=== PATIENT | male | born 1990 | race Caucasian/White ===

== ENCOUNTER 2018-09-06 15:09 | Emergency (ER) | payer BC, OTHER ==
[2018-09-06] MEDS ORDERED: Ibuprofen TAB* 600 MG PO ONE (16:50)
[2018-09-06 17:03] VITALS: BP 137/80
--- NOTE | 2018-09-13 06:42 | ED ---
Lower Extremity - HPI Summary HPI Summary: Patient is a 20-year-old male presented to the ED with right ankle pain after rolling the ankle yesterday. He has been ambulating, but with pain. He denies any swelling. Denies any ecchymosis. Denies any numbness or tingling. Denies any injury to the knee or foot otherwise. - History of Current Complaint Chief Complaint: EDExtremityLower Stated Complaint: RT ANKLE INJURY Time Seen by Provider: 09/06/18 15:40 Hx Obtained From: Patient Mechanism Of Injury: Twisted Onset of Pain: Hours Onset/Duration: Hours Severity Initially: Moderate Severity Currently: Moderate Pain Intensity: 3 Pain Scale Used: 0-10 Numeric Timing: Constant Location: Is Discrete @ - right ankle Associated Signs And Symptoms: Positive: Swelling. Negative: Redness, Bruising , Fever, Weakness Aggravating Factor(s): Standing, Ambulation Alleviating Factor(s): Rest - Risk Factors Gout Risk Factors: Negative DVT Risk Factors: Negative Septic Arthritis Risk Factor: Negative - Allergies/Home Medications Allergies/Adverse Reactions: Allergies Allergy/AdvReac Type Severity Reaction Status Date / Time No Known Allergies Allergy Verified 09/06/18 15:15 PMH/Surg Hx/FS Hx/Imm Hx Previously Healthy: Yes - Immunization History Hx Pertussis Vaccination: No Immunizations Up to Date: Yes Infectious Disease History: No Infectious Disease History: Denies: Traveled Outside the [place] in Last 30 Days - Social History Occupation: Employed Full-time Lives: With Family Alcohol Use: Weekly Hx Substance Use: Yes Substance Use Type: Reports: Marijuana Substance Use Comment - Amount & Last Used: recreational Hx Tobacco Use: Yes Smoking Status (MU): Light Every Day Tobacco Smoker Review of Systems Constitutional: Negative Negative: Fever, Chills, Fatigue, Skin Diaphoresis Negative: Palpitations, Chest Pain Negative: Shortness Of Breath, Cough Genitourinary: Negative Positive: no symptoms reported, see HPI Positive: Arthralgia, Myalgia Neurological: Negative All Other Systems Reviewed And Are Negative: Yes Physical Exam Triage Information Reviewed: Yes Vital Signs On Initial Exam: Initial Vitals Temp Pulse Resp BP Pulse Ox 98.4 F 72 16 128/78 100 09/06/18 15:13 09/06/18 15:13 09/06/18 15:13 09/06/18 15:13 09/06/18 15:13 Vital Signs Reviewed: Yes Appearance: Positive: Well-Appearing, Well-Nourished Skin: Positive: Warm, Skin Color Reflects Adequate Perfusion Head/Face: Positive: Normal Head/Face Inspection Eyes: Positive: EOMI, JOSE DE JESUS, Conjunctiva Clear Neck: Positive: Supple, No Lymphadenopathy Respiratory/Lung Sounds: Positive: Clear to Auscultation, Breath Sounds Present Cardiovascular: Positive: RRR, Pulses are Symmetrical in both Upper and Lower Extremities Musculoskeletal: Positive: Pain @ - right ankle - lateral portion Neurological: Positive: Alert, Oriented to Person Place, Time, Speech Normal Psychiatric: Positive: Affect/Mood Appropriate AVPU Assessment: Alert Diagnostics - Vital Signs Vital Signs Temp Pulse Resp BP Pulse Ox 09/06/18 17:02 98 F 69 18 137/80 96 09/06/18 15:13 98.4 F 72 16 128/78 100 - Laboratory Lab Statement: Any lab studies that have been ordered have been reviewed, and results considered in the medical decision making process. Lower Extremity Course/Dx - Course Course Of Treatment: Right ankle x-ray shows no AST is 77 FOR surgery there were no swelling is noted. Patient is able to dorsiflex and plantar flex, however with pain. There is no ecchymosis noted. Good pulses +2 bilaterally, both posterior tibial and pedal no acute fx. he is given a gel splint and crutches. He will follow up with [facility] if symptoms worsen. He is encouraged ibuprofen. He is given ibuprofen while medially. - Diagnoses Provider Diagnoses: Right ankle sprain Discharge - Sign-Out/Discharge Documenting (check all that apply): Patient Departure Patient Received Moderate/Deep Sedation with Procedure: No - Discharge Plan Condition: Stable Disposition: HOME Patient Education Materials: Ankle Sprain (ED) Forms: *Work Release Referrals: No Primary Care Phys,NOPCP [Primary Care Provider] - Additional Instructions: Ibuprofen 600mg three times daily for discomfort Elevate the extremity Ice to the area as much as possible Keep the gel splint applied Crutches as needed - Billing Disposition and Condition Condition: STABLE Disposition: Home
== END 2018-09-06 17:04 | disposition home or self-care (01) ==
LOC: ED 15:09
DX: S93.401A Sprain of unspecified ligament of right ankle, initial encounter (principal); X50.9XXA Other and unspecified overexertion or strenuous movements or postures, initial encounter; Y92.9 Unspecified place or not applicable; Z72.0 Tobacco use
CPT/HCPCS: 99282; A9270-GY

== ENCOUNTER → 2018-09-14 16:26 | Emergency (ER) | payer OTHER ==
--- NOTE | 2018-09-14 19:09 | ED ---
Lower Extremity - HPI Summary HPI Summary: Patient complains of right ankle pain status post basketball injury week ago. Patient states he went back to work as he was feeling better today and now has significant pain in right ankle. Denies any reinjury. Patient would like work note for couple days off from work. Denies any other pain injury or symptoms. - History of Current Complaint Chief Complaint: EDExtremityLower Stated Complaint: RIGHT ANKLE INJURY Time Seen by Provider: 09/14/18 18:36 Hx Obtained From: Patient Mechanism Of Injury: Unknown Onset of Pain: Days Severity Initially: Moderate Severity Currently: Moderate Pain Intensity: 5 Pain Scale Used: 0-10 Numeric Timing: Constant Location: Is Discrete @ Character Of Pain: Throbbing Associated Signs And Symptoms: Positive: Negative Aggravating Factor(s): Ambulation, Weight Bearing Alleviating Factor(s): Rest, Elevation Able to Bear Weight: Yes - Allergies/Home Medications Allergies/Adverse Reactions: Allergies Allergy/AdvReac Type Severity Reaction Status Date / Time No Known Allergies Allergy Verified 09/14/18 17:11 Home Medications: Home Medications NK [No Home Medications Reported] 09/14/18 [History Confirmed 09/14/18] PMH/Surg Hx/FS Hx/Imm Hx Endocrine/Hematology History: Denies: Hx Anticoagulant Therapy Cardiovascular History: Denies: Hx Cardiac Arrest History: Denies: Hx Dialysis Musculoskeletal History: Denies: Hx Gout Sensory History: Denies: Hx Legally Blind Neurological History: Denies: Hx Dementia Psychiatric History: Denies: Hx Autism Infectious Disease History: No Infectious Disease History: Denies: Traveled Outside the [place] in Last 30 Days - Social History Alcohol Use: Weekly Hx Substance Use: Yes Substance Use Type: Reports: Marijuana Substance Use Comment - Amount & Last Used: recreational Hx Tobacco Use: Yes Smoking Status (MU): Light Every Day Tobacco Smoker Review of Systems Constitutional: Negative Eyes: Negative ENT: Negative Cardiovascular: Negative Respiratory: Negative Gastrointestinal: Negative Genitourinary: Negative Positive: Arthralgia Skin: Negative Neurological: Negative Psychological: Normal All Other Systems Reviewed And Are Negative: Yes Physical Exam - Summary Physical Exam Summary: No swelling, erythema, ecchymosis, deformity noted to right ankle. Patient ambulatory. PMS intact distally. Triage Information Reviewed: Yes Vital Signs On Initial Exam: Initial Vitals Temp Pulse Resp BP Pulse Ox 98.1 F 62 17 160/95 99 09/14/18 17:08 09/14/18 17:08 09/14/18 17:08 09/14/18 17:08 09/14/18 17:08 Vital Signs Reviewed: Yes Appearance: Positive: Well-Appearing Skin: Positive: Warm Head/Face: Positive: Normal Head/Face Inspection Eyes: Positive: Normal Neck: Positive: Supple Respiratory/Lung Sounds: Positive: Clear to Auscultation Cardiovascular: Positive: Normal Abdomen Description: Positive: Nontender Musculoskeletal: Positive: Normal Neurological: Positive: Normal Psychiatric: Positive: Normal AVPU Assessment: Alert - [place] Coma Scale Best Eye Response: 4 - Spontaneous Best Motor Response: 6 - Obeys Commands Best Verbal Response: 5 - Oriented Coma Scale Total: 15 Diagnostics - Vital Signs Vital Signs Temp Pulse Resp BP Pulse Ox 09/14/18 17:08 98.1 F 62 17 160/95 99 - Laboratory Lab Statement: Any lab studies that have been ordered have been reviewed, and results considered in the medical decision making process. Lower Extremity Course/Dx - Course Course Of Treatment: Patient complains of right ankle pain status post [place] injury week ago. Patient states he went back to work as he was feeling better today and now has significant pain in right ankle. Denies any reinjury. Patient would like work note for couple days off from work. Denies any other pain injury or symptoms. Physical exam:No swelling, erythema, ecchymosis, deformity noted to right ankle. Patient ambulatory. PMS intact distally. Patient only received crutches and ankle gel splint on prior visit. Patient has not been using them. Patient just wants work note - Diagnoses Provider Diagnoses: Ankle pain Discharge - Sign-Out/Discharge Documenting (check all that apply): Patient Departure Patient Received Moderate/Deep Sedation with Procedure: No - Discharge Plan Condition: Stable Disposition: HOME Patient Education Materials: Ankle Sprain (ED) Forms: *Work Release Referrals: No Primary Care Phys,NOPCP [Primary Care Provider] - Judson Vasquez MD [Medical Doctor] - Additional Instructions: Ice, elevation, ibuprofen and rest for ankle pain. Follow-up with orthopedics Dr. Vasquez if pain persists. Return to the ED for any new or worsening symptoms. - Billing Disposition and Condition Condition: STABLE Disposition: Home
[2018-09-14 19:56] VITALS: BP 137/91
== END | disposition home or self-care (01) ==
LOC: ED 16:26
DX: M25.571 Pain in right ankle and joints of right foot (principal); F17.210 Nicotine dependence, cigarettes, uncomplicated
CPT/HCPCS: 99282

== ENCOUNTER 2018-12-20 18:27 | Emergency (ER) | payer OTHER ==
--- NOTE | 2018-12-20 20:44 | ED ---
Upper Extremity Pain - HPI Summary HPI Summary: Patient complains of right wrist pain 2 weeks. Denies initial traumatic event. States pain worse over last week. Patient states he has a job where he does a lot of repetitive hand motions. No improvement with ibuprofen and ice. Denies any other pain injury or symptoms. - History of Current Complaint Chief Complaint: EDExtremityUpper Stated Complaint: RIGHT WRIST INJURY PER PT Time Seen by Provider: 12/20/18 20:31 Hx Obtained From: Patient Mechanism Of Injury: Other Onset/Duration: Started Weeks Ago Timing: Constant Severity Initially: Moderate Severity Currently: Moderate Pain Location: Wrist Character: Aching, Throbbing Aggravating Factor(s): Movement Associated Signs & Symptoms: Positive: Negative - Allergies/Home Medications Allergies/Adverse Reactions: Allergies Allergy/AdvReac Type Severity Reaction Status Date / Time No Known Allergies Allergy Verified 12/20/18 18:35 PMH/Surg Hx/FS Hx/Imm Hx Endocrine/Hematology History: Denies: Hx Anticoagulant Therapy Cardiovascular History: Denies: Hx Cardiac Arrest History: Denies: Hx Dialysis Musculoskeletal History: Denies: Hx Gout Sensory History: Denies: Hx Legally Blind Opthamlomology History: Denies: Hx Legally Blind EENT History: Denies: Hx Deafness Neurological History: Denies: Hx Dementia Psychiatric History: Denies: Hx Autism Infectious Disease History: No Infectious Disease History: Denies: Traveled Outside the [place] in Last 30 Days - Family History Known Family History: Positive: Non-Contributory - Social History Alcohol Use: Weekly Hx Substance Use: Yes Substance Use Type: Reports: Marijuana Substance Use Comment - Amount & Last Used: recreational Hx Tobacco Use: Yes Smoking Status (MU): Light Every Day Tobacco Smoker Review of Systems Constitutional: Negative Eyes: Negative ENT: Negative Cardiovascular: Negative Respiratory: Negative Gastrointestinal: Negative Genitourinary: Negative Musculoskeletal: Other Skin: Negative Neurological: Negative Psychological: Normal All Other Systems Reviewed And Are Negative: Yes Physical Exam - Summary Physical Exam Summary: No ecchymosis, erythema, deformity, swelling noted to right wrist. Full range of motion. Tenderness along the lateral edge of right wrist. No snuffbox tenderness. No evidence of trauma. PMS intact distally. Triage Information Reviewed: Yes Vital Signs On Initial Exam: Initial Vitals Temp Pulse Resp BP Pulse Ox 98.1 F 65 16 143/93 97 12/20/18 18:33 12/20/18 18:33 12/20/18 18:33 12/20/18 18:33 12/20/18 18:33 Vital Signs Reviewed: Yes Appearance: Positive: Well-Appearing Skin: Positive: Warm Head/Face: Positive: Normal Head/Face Inspection Eyes: Positive: Normal Neck: Positive: Supple Respiratory/Lung Sounds: Positive: Clear to Auscultation Cardiovascular: Positive: Normal Abdomen Description: Positive: Nontender Musculoskeletal: Positive: Normal Neurological: Positive: Normal Psychiatric: Positive: Normal AVPU Assessment: Alert - [place] Coma Scale Best Eye Response: 4 - Spontaneous Best Motor Response: 6 - Obeys Commands Best Verbal Response: 5 - Oriented Coma Scale Total: 15 Diagnostics - Vital Signs Vital Signs Temp Pulse Resp BP Pulse Ox 12/20/18 18:33 98.1 F 65 16 143/93 97 - Laboratory Lab Statement: Any lab studies that have been ordered have been reviewed, and results considered in the medical decision making process. Course/Dx - Course Course Of Treatment: Patient complains of right wrist pain 2 weeks. Denies initial traumatic event. States pain worse over last week. Patient states he has a job where he does a lot of repetitive hand motions. No improvement with ibuprofen and ice. Denies any other pain injury or symptoms. Physical exam:No ecchymosis, erythema, deformity, swelling noted to right wrist. Full range of motion. Tenderness along the lateral edge of right wrist. No snuffbox tenderness. No evidence of trauma. PMS intact distally. X-ray right wrist negative. Patient placed in right wrist placed with this provider. Recommend ice and ibuprofen, rest. Follow-up with orthopedics if symptoms persist. - Diagnoses Provider Diagnoses: Wrist pain, right Discharge - Sign-Out/Discharge Documenting (check all that apply): Patient Departure Patient Received Moderate/Deep Sedation with Procedure: No - Discharge Plan Condition: Stable Disposition: HOME Patient Education Materials: Tendinitis (ED) Forms: *Work Release Referrals: No Primary Care Phys,NOPCP [Primary Care Provider] - Aaron Peter MD [Medical Doctor] - Additional Instructions: Rest, ice and ibuprofen for right wrist pain. Wear splint at all times. If symptoms persist more than a week follow up with orthopedics Dr. Peter for further evaluation. - Billing Disposition and Condition Condition: STABLE Disposition: Home
[2018-12-20 20:58] VITALS: BP 136/89
== END 2018-12-20 20:57 | disposition home or self-care (01) ==
LOC: ED 18:27
DX: M25.531 Pain in right wrist (principal); F17.210 Nicotine dependence, cigarettes, uncomplicated
CPT/HCPCS: 99281

== ENCOUNTER 2019-05-19 11:01 | Day surgery (SDC) | payer OTHER ==
[~2019-05-19 11:01] MED LIST: Buffered Lidocaine 1% SYRIN* 1 ML/SYRINGE INTRADERM ONE; Lactated Ringers 1000 ML Bag* 1,000 ML IV SCH
[2019-05-19] MEDS ORDERED: ceFAZolin 2 GM PREMIX in ORs 2 GM/50 ML BAG ONE (11:16)
[2019-05-19] MEDS ORDERED: Buffered Lidocaine 1% SYRIN* 1 ML/SYRINGE INTRADERM ONE (12:05)
[2019-05-19] MEDS ORDERED: Bupivacaine 0.25% SDV* 30 ML ONE (13:35)
[2019-05-19] MEDS ORDERED: Lidocaine 1% INJ* 10 MG/ML 30 ML SDV ONE (13:35)
[2019-05-19] MEDS ORDERED: fentaNYL* 50 MCG/ML 2 ML VIAL (100 MCG VIAL) ONE ×3 (13:55→16:35)
[2019-05-19] MEDS ORDERED: Propofol* 10 MG/ML 20 ML BTL ONE ×2 (13:55→13:58)
[2019-05-19] MEDS ORDERED: Midazolam* 1 MG/ML 2 ML VIAL (2 MG) ONE (13:55)
[2019-05-19] MEDS ORDERED: Succinylcholine* 20 MG/ML 10 ML VIAL ONE (13:55)
[2019-05-19] MEDS ORDERED: Lidocaine 2% PF * 5 ML VIAL ONE ×2 (13:55→15:09)
[2019-05-19] MEDS ORDERED: Rocuronium* 10 MG/ML VIAL ONE (14:20)
[2019-05-19] MEDS ORDERED: Metoclopramide IV* 5 MG/ML 2 ML VIAL ONE (14:32)
[2019-05-19] MEDS ORDERED: Ondansetron INJ* 2 MG/ML VIAL ONE ×2 (14:32→14:44)
[2019-05-19] MEDS ORDERED: Dexamethasone IV* 4 MG/ML 1 ML (4 MG) ONE (14:32)
[2019-05-19] MEDS ORDERED: Ketorolac INJ* 30 MG/ML 1 ML VIAL ONE ×2 (14:32→14:45)
[2019-05-19] MEDS ORDERED: KETAMINE HCL* 50 MG/ML 10 ML VIAL ONE (14:56)
[2019-05-19] MEDS ORDERED: Glycopyrrolate IV* 0.2 MG/ML 1 ML VIAL ONE (15:26)
[2019-05-19] MEDS ORDERED: Neostigmine Methylsulfate* 3 MG/3 ML SYRINGE ONE (15:26)
[2019-05-19] MEDS ORDERED: DiMENhydriNATE IV* 50 MG/ML VIAL IV PUSH PRN (16:09)
[2019-05-19] MEDS ORDERED: HYDROmorphone INJ1* 1 MG/ML SYRINGE IV PRN (16:09)
[2019-05-19] MEDS ORDERED: Naloxone* 0.4 MG/ML 1 ML VIAL IV PRN (16:09)
[2019-05-19] MEDS ORDERED: fentaNYL* 50 MCG/ML 2 ML VIAL (100 MCG VIAL) IV PRN (16:09)
[2019-05-19 17:39] VITALS: BP 145/102
--- NOTE | 2019-05-19 23:33 | OP ---
DATE OF OPERATION: 05/19/19 - [facility] DATE OF : 89 SURGEON: Judson Vasquez MD PROFESSOR OF PUBLIC ADMINISTRATION: CB Banegas. An assistant chief train dispatcher was needed for the procedure to aid in positioning of the arm and retraction. ANESTHESIOLOGIST: Dr. De Los Santos. ANESTHESIA: General. 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 OPERATIVE PROCEDURE: 1. Right wrist arthroscopic debridement of lot of dorsal synovitis and degenerative tissue. 2. Right open TFCC repair. 3. Right pisiform excision. INDICATIONS: Mr. Christian has significant ulnar-sided wrist pain. The pain is mechanical in nature. He has been treating this nonoperatively and is not improving. It is right ulnar to the aspect and right near the pisotriquetral joint line and he has pain with loading of the pisotriquetral joint and also lot of pain just anterior to the ulnar styloid and right on the tip of the ulnar styloid and on the corresponding trapezium suggesting potential component of ulnar styloid impaction. We talked about treatment options, risks and benefits. He wanted to proceed. ESTIMATED BLOOD LOSS: 2 mL. COMPLICATIONS: None. FINDINGS: See above and below. DESCRIPTION OF PROCEDURE: Mr. Christian was seen in the preoperative holding area. The correct side, site and procedure were identified. We came back to the operating room where the arm was prepped and draped in the usual fashion. A time- out was performed. The arm was exsanguinated and the tourniquet inflated to 250 mmHg. The arm was placed in the Acumed traction tower. In-line traction was applied. A 3-4 portal was developed in standard fashion. The camera was introduced into the 3- 4 portal. Radially, structures all looked fine. Once I came ulnar, there was lot of loose tissue that had flipped into the joint that was mostly emanating from the dorsum and also little bit from the ulnar aspect. All of these large flaps of tissue were removed with the shaver. I did create a 6R portal in standard fashion and the shaver was introduced through there. I then took the radiofrequency ablator and utilized that to further debridement of the joint. Everything was nicely debrided. He TFCC had good tension on it. Once I completed the debridement, I went ahead and removed the arthroscopic equipment and then created midcarpal portals as on his preoperative MR arthrogram, there was concern for some lunotriquetral ligament injury. I did think this was case. I thought that will be seen after doing the arthroscopy. I thought that was seen on the MRI with loose flaps of tissue that were coming from the dorsal capsule. He did have a type 2 lunate. On inspection in the midcarpal portal, there was some synovitis there that was debrided. There was no instability near the scapholunate or lunotriquetral intervals that I noted. I could not get the probe into either joint. The arthroscopic equipment was then removed and we turned our attention to the open portion of the procedure. I made an ulnar incision that was brought back across the wrist in Tommie-type fashion with the apex of the flap over the anterior aspect of the pisiform and then it was brought back down in the ulnar mid axial line. Full thickness flaps were raised off the fascia in the ulnar collateral ligament. I went ahead and used a [place] blade to release the soft tissue around the margins of the pisiform very carefully so as not to injure the ulnar nerve. The pisiform bone was then excised. I did ultimately excised in piecemeal fashion. Very interestingly when I opened up the pisotriquetral joint, a loose ossicle came out of the joint. After the pisiform was excised, I went ahead and looked at the ulnar styloid and triquetrum. The ulnar collateral ligament was looked like it may have avulsed off its insertion on to the triquetrum. I freed up and cleaned up all that tissue. The insertion site was debrided and then a DePuy mini-Mitek suture anchor was placed into the footprint of the ulnar collateral ligament insertion. This was then used to sew the soft tissue back down to bone. It repaired very nicely. Just prior to that, I had excised at the very tip may be 2 mm of the ulnar styloid. The insertion of the foveal fibers looked like it was intact, so that was not disturbed. I went ahead and took the remainder of my 2-0 Ethibond suture and repaired the approach and the remainder of the TFCC [id number]. At this point, everything was looking very good. I irrigated out the wound. The skin was closed with 4- 0 nylon suture. The wounds were dressed and a sugar-tong splint with forearm in neutral rotation was applied. Tourniquet was deflated and the hand pinked up immediately and he was taken to the recovery room in stable condition. [id number] #: [id number] MTDD
== END 2019-05-19 17:39 | disposition home or self-care (01) ==
LOC: OREAST 11:01
PROVIDERS: ATTEND Orthopaedic Surgery Hand Surgery
DX: S63.591A Other specified sprain of right wrist, initial encounter (principal); Z72.0 Tobacco use; X58.XXXA Exposure to other specified factors, initial encounter; Y92.9 Unspecified place or not applicable
CPT/HCPCS: 88304; 88311; C1713; J0330; J0690; J1100; J1885; J2250; J2405; J2704; J2710; J2765; J3010; J3490